=== PATIENT | female | born 2000 | race Caucasian/White ===

== ENCOUNTER → 2022-01-20 | Outpatient (CLI) | payer BC, OTHER | END | disposition home or self-care (01) | LOC: LAB SHORT 15:10 | PROVIDERS: Registered Nurse Community Health | DX: Z12.4 Encounter for screening for malignant neoplasm of cervix (principal) | CPT/HCPCS: G0123 ==

== ENCOUNTER → 2022-07-08 | Outpatient (CLI) | payer BC, OTHER ==
[2022-07-08 14:45] LABS: BASOPHILS ABSOLUTE AUTO 0.04 K/mm3 (0.00-0.23); BASOPHILS PERCENT AUTO 1 % (0-2); EOSINOPHILS ABSOLUTE AUTO 0.12 K/mm3 (0.00-0.68); EOSINOPHILS PERCENT AUTO 2 % (0-6); Hematocrit 47.6 % (33.0-51.0); Hemoglobin 16.2 g/dL (11.5-16.0); IMMATURE GRAN ABSOLUTE AUTO 0.03 K/mm3 (0.00-0.10); IMMATURE GRAN PERCENT AUTO 1 % (0-1); LYMPHOCYTES ABSOLUTE AUTO 1.85 K/mm3 (0.84-5.20); LYMPHOCYTES PERCENT AUTO 32 % (21-46); MONOCYTES PERCENT AUTO 5 % (4-13); Mean Corpuscular HGB 30.1 pg (26.0-34.0); Mean Corpuscular Volume 88 fL (80-100); Mean Platelet Volume 11.1 fL (9.1-12.4); NEUTROPHILS ABSOLUTE AUTO 3.42 K/mm3 (1.96-9.15); NEUTROPHILS PERCENT AUTO 59 % (41-73); Platelet Count 245 K/mm3 (150-400); RDW Standard Deviation 38.7 fL (35.1-46.3); Red Blood Cell Count 5.39 M/mm3 (3.80-5.20); White Blood Cell Count 5.76 K/mm3 (4.00-11.30)
== END | disposition home or self-care (01) ==
LOC: LAB SHORT 12:45
PROVIDERS: Student in an Organized Health Care Education/Training Program
DX: F64.9 Gender identity disorder, unspecified (principal)
CPT/HCPCS: 84403; 85025

== ENCOUNTER → 2024-05-14 | Outpatient (CLI) | payer BC, OTHER ==
[2024-05-17 18:22] LABS: C. TRACHOMATIS BY TMA,THINPREP Negative (Negative); N. GONORRHOEAE BY TMA,THINPREP Negative (Negative); SPECIMEN SOURCE Not Provided
== END ==
LOC: LAB 16:58 → LAB SHORT 16:58
PROVIDERS: Family Medicine
DX: Z01.419 Encounter for gynecological examination (general) (routine) without abnormal findings (principal)
CPT/HCPCS: 87491; 87591